=== PATIENT | female | born 1985 | race Caucasian/White ===

== ENCOUNTER 2018-10-25 14:55 | Emergency (ER) | payer MEDICAID, OTHER ==
[~2018-10-25] VITALS: Ht 160 cm; Wt 77.1 kg
[2018-10-25 15:10] VITALS: BP 120/74
--- NOTE | 2018-10-25 15:18 | NUR ---
TO BED 1 WITH STEADY GAIT
--- NOTE | 2018-10-25 15:23 | NUR ---
PT AMB TO RESTROOM WITH STEADY GAIT
--- NOTE | 2018-10-25 15:29 | NUR ---
REFERRED TO ED FOR EVALUATION AND TREATMENT OF SUSPECTED ECTOPIC BY PLANNED [facility]. PT WENT TO CLINIC 10/21/18 FOR THERAPEUTIC . NO POC ON ASPIRATION OR SIGNIFICANT DROP IN BETAS POST ASPIRATION. PT DENIES ABD PAIN. LIGHT PINK VAGINAL SPOTTING UPON "WIPING," X LAST NIGHT. PT DENIES USING PADS TODAY. NO URINARY COMPLAINTS. NO N/V/D. P:2 TAB: 5. VSS AT THIS TIME. PT [id number]. DENIES PAIN. BED IS DOWN, LOCKED, BED RAIL X 1, ERMD TO SEE PT. HX: DENIES RX: DENIES
--- NOTE | 2018-10-25 15:30 | NUR ---
DR YOUNG AT BEDSIDE
[2018-10-25 16:13] LABS: HEMATOCRIT 41.9 % (36-48); MEAN CORPUSCULAR HEMOGLOBIN 31 pg (27-31); MEAN CORPUSCULAR HGB CONC 33 g/dL (33-37); MEAN CORPUSCULAR VOLUME 93.9 fL (80-94); PLATELET COUNT (AUTO) 304 K/uL (140-450); RED BLOOD CELL COUNT(AUTO) 4.47 MIL/uL (4.20-5.40); RED CELL DISTRIBUTION WIDTH 13.3 % (11.6-13.7); WHITE BLOOD COUNT (AUTO) 6.2 K/uL (4.8-10.8)
[2018-10-25 16:14] LABS: BASOPHILS % (AUTO) 0.7 % (0.0-2.0); EOSINOPHILS # (AUTO) 0.1 K/uL (0-0.4); EOSINOPHILS % (AUTO) 1.1 % (0.0-4.0); LYMPHOCYTES # (AUTO) 1.6 K/uL (2.5-16.5); LYMPHOCYTES % (AUTO) 25.7 % (20.5-51.1); MONOCYTES # (AUTO) 0.5 K/uL (0.8-1.0); MONOCYTES % (AUTO) 7.4 % (1.7-9.3); NEUTROPHILS % (AUTO) 65.1 % (42.2-75.2)
[2018-10-25 16:19] LABS: ANION GAP 11.5 (8-16); POTASSIUM 3.5 mmol/L (3.5-5.1)
[2018-10-25 16:20] LABS: ALBUMIN 4.1 g/dL (3.4-5.0); CREATININE 0.8 mg/dL (0.6-1.3); TOTAL BILIRUBIN 0.4 mg/dL (0.0-1.0)
[2018-10-25 16:22] LABS: PROTHROMBIN TIME 9.6 secs (10.8-13.4)
[2018-10-25 17:38] VITALS: BP 120/75
--- NOTE | 2018-10-25 17:38 | NUR ---
Patient discharged with v/s stable. Written and verbal after care instructions given and explained. Patient verbalized understanding. Ambulatory with steady gait. All questions addressed prior to discharge. Advised to follow up with PMD. PT INSTRUCTED TO FOLLOW UP WITH DR SUBRAMANIAN SCHEDULED. PT PROVIDED WITH HIS NUMBER. INSRUCTED TO RETURN TO ER IF SYMPTOMS WORSEN.
== END 2018-10-25 17:38 | disposition home or self-care (01) ==
LOC: MED 14:55
DX: Z33.2 Encounter for elective termination of pregnancy (principal); Z90.49 Acquired absence of other specified parts of digestive tract
CPT/HCPCS: 36415; 76830; 80053; 81002; 81025; 84702; 85025; 85610; 85730; 86886; 86900; 86901; 99284; Q0092